=== PATIENT | female | born 1975 | race Two or more races ===

== ENCOUNTER → 2018-01-02 | Outpatient (CLI) | payer OTHER ==
--- NOTE | 2018-01-02 15:05 | RAD ---
DATE: 01/02/2018 EXAM: DIGITAL DIAGNOSTIC BILATERAL, BREAST LEFT HISTORY: Left breast lumps COMPARISON: None available This study was interpreted with the benefit of Computerized Aided Detection (CAD). The breast parenchyma is heterogeneously dense, which could reduce sensitivity of mammography. Breast parenchyma level C. FINDINGS: BBs were placed on the skin surface over the areas of reported palpable concern at the 9:00 and 5:00 locations in the left breast. 2-D mammograms were obtained bilaterally in the CC and MLO projections. 3-D tomosynthesis imaging was also performed on the left. The breasts are heterogeneously dense. A 4 mm smooth nodule is noted inferomedially in the left breast as best seen on CC tomogram 3. No spiculated mass or area of architectural distortion is evident. No suspicious microcalcifications are seen. Left breast ultrasound, 01/02/2018: A targeted ultrasound exam of the left breast was performed. We first scanned the area of palpable concern at the 9:00 location. Heterogeneous fibroglandular shadows are present. No breast mass is seen. We then targeted to the 7:00 location where a small nodule was seen on the mammograms. Approximately 7 cm from the nipple at the 7:00 location there is a 5 mm smooth nodule with low level internal echoes and faint posterior acoustic enhancement. This probably a complicated cyst. We then targeted the 4-6 o'clock location the left breast where the patient reports tenderness but not a true palpable lump. At least 3 small smooth anechoic and hypoechoic nodules are seen compatible with cysts. The largest of these measures 7 mm and demonstrates sonographic characteristics of a simple cyst. A couple of the smaller nodules demonstrate low level internal echoes compatible with complicated cysts. IMPRESSION: 1. No sonographic or mammographic correlate for the reported palpable abnormality at the 9:00 location in the left breast. Clinical surveillance is suggested. 2. A combination of cysts and probable complicated cysts at the 7:00 and 4-6:00 locations in the left breast. Follow-up left breast sonography in 6 months is suggested. BI-RADS CATEGORY: 3 PROBABLY BENIGN FINDING(S)-SHORT INTERVAL FOLLOW-UP SUGGESTED RECOMMENDED FOLLOW-UP: 6M 6 MONTH FOLLOW-UP PQRS compliance statement: Patient information was entered into a reminder system with a target due date for the next mammogram. Mammography is a sensitive method for finding small breast cancers, but it does not detect them all and is not a substitute for careful clinical examination. A negative mammogram does not negate a clinically suspicious finding and should not result in delay in biopsying a clinically suspicious abnormality. "Our facility is accredited by the [employer] Mammography Program."
== END | disposition home or self-care (01) ==
LOC: MAMMO 12:52
PROVIDERS: ATTEND Nurse Practitioner Family
DX: R92.8 Other abnormal and inconclusive findings on diagnostic imaging of breast (principal)
CPT/HCPCS: 76641; 77066